=== PATIENT | male | born 1950 ===

== ENCOUNTER 2017-10-11 11:17 | Emergency (ER) | payer OTHER ==
--- NOTE | 2017-10-11 12:00 | ED PDOC ---
Arrival/HPI - General Chief Complaint: Abnormal Skin Integrity Time Seen by Provider: 10/11/17 11:42 Historian: Patient - History of Present Illness Narrative History of Present Illness (Text): 10/11/17 11:43 67yo male with pmhx of Psoriasis who present with complaint of worsening rash with pruritus . States he is on Otezla for two months now and his prednisone is being tapered down currently. States he saw his PMD and was given antibiotics. He however denies fever, chills, neck pain, any inciting factors, SOB, any other complaint. Past Medical History - Provider Review Nursing Documentation Reviewed: Yes - Infectious Disease Hx of Infectious Diseases: None - Cardiac Hx Cardiac Disorders: No - Pulmonary Hx Respiratory Disorders: No - Renal Hx Kidney Stones: Yes - Endocrine/Metabolic Hx Diabetes Mellitus Type 2: Yes - Integumentary Hx Psoriasis: Yes - Psychiatric Hx Substance Use: No - Anesthesia Hx Anesthesia: Yes Hx Anesthesia Reactions: No Family/Social History - Physician Review Nursing Documentation Reviewed: Yes Family/Social History: Unknown Family HX Smoking Status: Unknown If Ever Smoked Hx Alcohol Use: No Hx Substance Use: No Allergies/Home Meds Allergies/Adverse Reactions: Allergies No Known Allergies Allergy (Verified 10/11/17 11:29) Home Medications: Home Meds Medication Instructions Recorded Confirmed Apremilast [Otezla] 30 mg PO BID 10/11/17 10/11/17 Cephalexin [Keflex] 500 mg PO BID 10/11/17 10/11/17 Finasteride [Proscar] 5 mg PO DAILY 10/11/17 10/11/17 Glyburide/Metformin HCl 1 each PO BID 10/11/17 10/11/17 [Glyburide-Metformin 5-500 mg] Prednisone [Deltasone] 20 mg PO DAILY 10/11/17 10/11/17 Review of Systems - Physician Review All systems were reviewed & negative as marked: Yes - Review of Systems Constitutional: Normal Eyes: Normal ENT: Normal Respiratory: Normal Cardiovascular: Normal Gastrointestinal: Normal Genitourinary Male: Normal Musculoskeletal: Normal Skin: Rash, Pruritis Neurological: Normal Endocrine: Normal Hemo/Lymphatic: Normal Psychiatric: Normal Physical Exam Vital Signs Reviewed: Yes Vital Signs Temp Pulse Resp BP Pulse Ox 10/11/17 12:30 98.4 F 84 18 140/89 97 10/11/17 11:24 98.8 F 105 H 20 126/77 99 10/11/17 11:17 98.8 F 105 H 20 126/99 H 99 Temperature: Afebrile Blood Pressure: Normal Pulse: Regular Respiratory Rate: Normal Appearance: Positive for: Well-Appearing, Non-Toxic, Comfortable Pain Distress: None Mental Status: Positive for: Alert and Oriented X 3 - Systems Exam Head: Present: Atraumatic, Normocephalic Pupils: Present: PERRL Extroacular Muscles: Present: EOMI Conjunctiva: Present: Normal Mouth: Present: Moist Mucous Membranes Neck: Present: Normal Range of Motion Respiratory/Chest: Present: Clear to Auscultation, Good Air Exchange. No: Respiratory Distress, Accessory Muscle Use Cardiovascular: Present: Regular Rate and Rhythm, Normal S1, S2. No: Murmurs Abdomen: No: Tenderness, Distention, Peritoneal Signs Back: Present: Normal Inspection Upper Extremity: Present: Normal Inspection. No: Cyanosis, Edema Lower Extremity: Present: Normal Inspection. No: Edema Neurological: Present: GCS=15, CN II-XII Intact, Speech Normal Skin: Present: Warm, Dry, Normal Color. No: Rashes Psychiatric: Present: Alert, Oriented x 3, Normal Insight, Normal Concentration Medical Decision Making - Medication Orders Current Medication Orders: Discontinued Medications Methylprednisolone (Solu-Medrol) 125 mg IVP STAT STA Stop: 10/11/17 11:43 Last Admin: 10/11/17 12:04 Dose: 125 mg IVP Administration Document 10/11/17 12:04 SRE (Rec: 10/11/17 12:04 SRE [id number]) Charges for Administration # of IVP Administrations 1 Disposition/Present on Arrival - Present on Arrival Any Indicators Present on Arrival: No History of DVT/PE: No History of Uncontrolled Diabetes: No Urinary Catheter: No History of Decub. Ulcer: No History Surgical Site Infection Following: None - Disposition Have Diagnosis and Disposition been Completed?: Yes Diagnosis: Psoriasis Disposition: HOME/ ROUTINE Disposition Time: 12:10 Patient Plan: Discharge Condition: STABLE Discharge Instructions (ExitCare): Psoriasis Additional Instructions: Follow up with your Assistant Principal Return to ED for any new symptoms Referrals: Mahesh Wright MD [Staff Provider] - Follow up with primary Forms: [employer] (Mauritian)
[2017-10-11 12:31] VITALS: BP 140/89; PULSE 84; RESP 18; TEMP 98.4; O2SAT 97
== END 2017-10-11 12:25 | disposition home or self-care (01) ==
LOC: ED 11:17 → MERGE 11:17 → ED 12:25
DX: L40.9 Psoriasis, unspecified (principal); E11.9 Type 2 diabetes mellitus without complications
CPT/HCPCS: 96374; 99282; J2930